=== PATIENT | male | born 1935 | race Caucasian/White ===

== ENCOUNTER 2018-09-03 18:51 | Emergency (ER) | payer OTHER, MEDICAID ==
[~2018-09-03] VITALS: Ht 180.3 cm; Wt 82.0 kg
[~2018-09-03 18:51] MED LIST: AMLODIPINE; LIPITOR; TRAMADOL
[2018-09-03 20:15] LABS: BASOPHILS % 0.2 % (0.0-2.0); HEMATOCRIT. 42.2 % (42.0-52.0); HEMOGLOBIN. 13.8 g/dL (14.0-18.0); LYMPHOCYTES % 10.9 % (20.0-50.0); MEAN CORPUSCULAR HEMOGLOBIN 31.5 pg (28.0-32.0); MEAN CORPUSCULAR VOLUME 96.7 fL (80.0-94.0); MEAN PLATELET VOLUME 10.1 fl (7.4-10.4); MONOCYTES % 7.3 % (2.0-8.0); NEUTROPHILS % 80.6 % (40.0-76.0); PLATELET 168 x1000/uL (130-400); RED BLOOD CELL COUNT 4.37 mill/uL (4.7-6.1); RED CELL DISTRIBUTION WIDTH 13.3 % (11.6-14.6)
[2018-09-03 20:19] LABS: CHLORIDE 107 mEq/L (98-107)
[2018-09-03 20:28] LABS: CREATINE KINASE 63 IU/L (39-308)
[2018-09-03 23:35] VITALS: BP 129/58
== END 2018-09-03 23:36 | disposition short-term general hospital (02) ==
LOC: ER 19:20 → CANBEDREQ 09-04 02:11
DX: R55 Syncope and collapse (principal); R53.1 Weakness; R42 Dizziness and giddiness
CPT/HCPCS: 36415; 71045; 82550; 83880; 84484; 93005; 99285